=== PATIENT | female | born 1995 | race Caucasian/White ===

== ENCOUNTER 2020-11-27 09:03 | Emergency (ER) | payer OTHER ==
[2020-11-27] MEDS ORDERED: VENTOLIN HFA18 GM INH (09:46)
[2020-11-27] MEDS ORDERED: TESSALON PERLE100 M1 PO (09:46)
[2020-11-27] MEDS ORDERED: AMOXICILLIN875 MG PO (10:49)
== END 2020-11-27 11:31 | disposition home or self-care (01) ==
LOC: FER 09:03
DX: R05 Cough (principal); K02.9 Dental caries, unspecified; K04.01 Reversible pulpitis; F17.210 Nicotine dependence, cigarettes, uncomplicated
CPT/HCPCS: 71046